=== PATIENT | female | born 1945 | race African-American/Black ===

== ENCOUNTER 2021-07-05 19:57 | Emergency (ER) | payer MEDICARE, MEDICAID ==
[~2021-07-05] VITALS: Ht 165.1 cm; Wt 50.0 kg
[2021-07-05 21:12] LABS: HEMATOCRIT. 38.9 % (36.0-48.0); HEMOGLOBIN. 13.8 g/dL (12.0-16.0); MEAN CORPUSCULAR VOLUME 89.9 fL (81.0-99.0); PLATELET 102 x1000/uL (130-400); RED BLOOD CELL COUNT 4.32 mill/uL (4.2-5.4); RED CELL DISTRIBUTION WIDTH 12.7 % (11.6-14.6)
[2021-07-05 21:18] LABS: CHLORIDE 106 mEq/L (98-107)
[2021-07-05 21:22] LABS: ETHANOL BLOOD < 10 mg/dL
[2021-07-05 21:31] LABS: PLATELET ESTIMATE DECREASED
[2021-07-06] MEDS ORDERED: LABETALOL 5MG/ML SYR 20 MG/4 ML SYRINGE IV ONE (00:15)
[2021-07-06 00:31] LABS: CLARITY URINE CLEAR (CLEAR); COLOR URINE DARK YELLOW (YELLOW); KETONES URINE 3+ (NEGATIVE); LEUKOCYTE ESTERASE URINE NEGATIVE (NEGATIVE); NITRITE URINE NEGATIVE (NEGATIVE); OCCULT BLOOD URINE TRACE (NEGATIVE); PROTEIN URINE 2+ (NEGATIVE); SPECIFIC GRAVITY URINE 1.023 (1.005-1.030)
[2021-07-06 00:39] LABS: *AMPHETAMINES SCREEN URINE NEGATIVE (NEGATIVE); *BARBITURATES SCREEN URINE NEGATIVE (NEGATIVE); *BENZODIAZEPINES SCREEN URINE NEGATIVE (NEGATIVE); *COCAINE SCREEN URINE NEGATIVE (NEGATIVE)
[2021-07-06 00:41] LABS: CANNABINOID URINE SCREEN NEGATIVE (NEGATIVE); METHADONE URINE SCREEN NEGATIVE (NEGATIVE); OPIATES URINE SCREEN NEGATIVE (NEGATIVE); PHENCYCLIDINE URINE SCREEN NEGATIVE (NEGATIVE)
[2021-07-06] MEDS ORDERED: DOXYCYCLINE HYCLATE 100 MG/VIAL IV ONE (00:45)
[2021-07-06] MEDS ORDERED: CEFTRIAXONE 1 G PREMIX 50 ML IV ONE (00:45)
[2021-07-06] MEDS ORDERED: CEFP200T13 MT (00:51)
[2021-07-06] MEDS ORDERED: DOXY100C5 MT (00:52)
[2021-07-06] MEDS ORDERED: DOXYCYCLINE 100MG in DEXTROSE 5% WATER 100ML IV SCH (01:00)
[2021-07-06 01:45] VITALS: BP 150/71
[2021-07-06] MEDS ORDERED: POLY17PO3 MT (01:58)
== END 2021-07-06 02:56 | disposition home or self-care (01) ==
LOC: ER 19:57
DX: U07.1 COVID-19 (principal); N39.0 Urinary tract infection, site not specified; J18.9 Pneumonia, unspecified organism; I10 Essential (primary) hypertension; F03.90 Unspecified dementia, unspecified severity, without behavioral disturbance, psychotic disturbance, mood disturbance, and anxiety
CPT/HCPCS: 36415; 71045; 80053; 80305; 80320; 81003; 83690; 83880; 84484; 85025; 86850; 86900; 86901; 87426; 93005; 96365; 96367; 96375; 99285; J0696; J3490; J7060; G0480